=== PATIENT | female | born 2005 | race Caucasian/White ===

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

== ENCOUNTER 2024-04-28 00:12 | Inpatient (IN) | payer MEDICAID ==
[2024-04-28] MEDS ORDERED: Carboprost Tromethamine 250 MCG/1 ML Amp IM PRN (01:06)
[2024-04-28] MEDS ORDERED: Ondansetron 4 MG/2 ML SDV IVPUSH PRN (01:06)
[2024-04-28] MEDS ORDERED: Acetaminophen 325 MG Tab PO PRN (01:06)
[2024-04-28] MEDS ORDERED: Methylergonovine 0.2 MG/1 ML Amp IM PRN (01:06)
[2024-04-28] MEDS ORDERED: Misoprostol 400 MCG (4 X 100 MCG TAB) RECTAL PRN (01:06)
[2024-04-28] MEDS ORDERED: Sodium Chloride 0.9% 10 ML Syringe FLUSH PRN (01:06)
[2024-04-28] MEDS ORDERED: hydrOXYzine HCl 25 MG Tab PO PRN (01:10)
[2024-04-28 01:30] LABS: HEMATOCRIT 38.1 % (37.0-47.0); HEMOGLOBIN 12.3 g/dL (12.0-16.0); MEAN CORPUSCULAR HEMOGLOBIN 25.3 pg (27.0-34.0); MEAN CORPUSCULAR HGB CONC 32.3 g/dL (33.0-35.0); MEAN CORPUSCULAR VOLUME 78.2 fL (80-100); RED BLOOD CELL COUNT 4.87 10^6/uL (4.2-5.4); WHITE BLOOD CELL COUNT,WBC 13.3 10^3/uL (5.0-10.0)
[2024-04-28] MEDS: Lactated Ringers 1,000 ML IV SCH (01:45)
[2024-04-28] MEDS: Penicillin G Potassium 5 MILLUNITS in Sodium Chloride 0.9% 100 ML IV ONE (01:47)
[2024-04-28] MEDS: fentaNYL 100 MCG/2 ML SDV IVPUSH PRN (03:47)
[2024-04-28] MEDS ORDERED: Bupivacaine 0.25% 10 ML SDV ONE ×3 (05:23→19:06)
[2024-04-28] MEDS ORDERED: fentaNYL 100 MCG/2 ML SDV ONE ×3 (05:23→19:06)
[2024-04-28] MEDS: Penicillin G Potassium 3 MILLUNITS in Sodium Chloride 0.9% 100 ML IV SCH (05:40)
[2024-04-28] MEDS ORDERED: Phenylephrine HCl In 0.9% NaCl 1 MG/10 ML Syringe IVPUSH PRN (05:48)
[2024-04-28] MEDS ORDERED: ePHEDrine 50 MG/ML SDV IVPUSH PRN (05:48)
[2024-04-28] MEDS ORDERED: Lidocaine 1% 4 ML ONE (05:55)
[2024-04-28] MEDS: Oxytocin/Normal Saline 30 UNIT/500 ML BAG IV SCH (05:56)
[2024-04-28] MEDS ORDERED: Ropivacaine 200 MG in Premix Bag 1 BAG EPIDUR SCH (06:00)
[2024-04-28 09:34] LABS: HEMATOCRIT 35.6 % (37.0-47.0); HEMOGLOBIN 11.4 g/dL (12.0-16.0); MEAN CORPUSCULAR HEMOGLOBIN 25.3 pg (27.0-34.0); MEAN CORPUSCULAR VOLUME 79.1 fL (80-100); RED BLOOD CELL COUNT 4.5 10^6/uL (4.2-5.4); WHITE BLOOD CELL COUNT,WBC 14.2 10^3/uL (5.0-10.0)
[2024-04-28 09:37] LABS: APPEARANCE,URINE CLEAR (CLEAR); BILIRUBIN,URINE NEGATIVE (NEGATIVE); COLOR,URINE DARK YELLOW (YELLOW); GLUCOSE,URINE NEGATIVE (NEGATIVE); KETONES,URINE NEGATIVE (NEGATIVE); LEUKOCYTE ESTERASE,URINE TRACE (NEGATIVE); NITRITE,URINE NEGATIVE (NEGATIVE); OCCULT BLOOD,URINE TRACE-INTACT (NEGATIVE); PROTEIN,URINE 30 (NEGATIVE); UROBILINOGEN,URINE 0.2 mg/dL (0.2-1.0)
[2024-04-28 09:55] LABS: CREATININE 0.67 mg/dL (0.55-1.02); EST CRCL DRUG DOSING (CG) 126.43 mL/min; URIC ACID 3.6 mg/dL (2.6-6.0)
[2024-04-28 10:23] LABS: CREATININE,URINE RAND 201.86 mg/dL (No establ ref range); PROTEIN CREATININE RATIO,URINE 301.2 mg/g (<150.0); PROTEIN,URINE RANDOM 60.8 mg/dL (0.0-11.9)
[2024-04-28] MEDS: Tranexamic Acid 1,000 MG in Sodium Chloride 0.9% 100 ML IV PRN (20:42)
[2024-04-28] MEDS ORDERED: Oxytocin 10 Units/1 ML SDV IM PRN (20:51)
[2024-04-28] MEDS ORDERED: Simethicone 80 MG Tab.Chew PO PRN (20:51)
[2024-04-28] MEDS: Ibuprofen 800 MG Tab PO SCH (21:25)
[2024-04-28] MEDS: Benzocaine/Menthol 20%-0.5% Spray 78 GM Cannister TOP PRN (21:25)
[2024-04-28] MEDS: Witch Hazel Medicated Pads 100/Jar TOP PRN (21:25)
[2024-04-28] MEDS: Lidocaine 1% 30 ML SDV INJECT ONE (23:46)
[2024-04-28] MEDS: Lactated Ringers 1,000 ML IV ONE (23:47)
[2024-04-29] MEDS ORDERED: fentaNYL 100 MCG/2 ML SDV ONE (06:20)
[2024-04-29] MEDS ORDERED: Bupivacaine 0.25% 10 ML SDV ONE (06:20)
[2024-04-29] MEDS: Prenatal Multivitamin with Calcium/Folic Acid/Iron Tab PO SCH (08:00)
[2024-04-29] MEDS: Docusate Sodium 100 MG Cap PO PRN (08:00)
[2024-04-29] MEDS: Ibuprofen 800 MG Tab PO SCH (16:50)
[2024-04-29] MEDS: hydrOXYzine HCl 25 MG Tab PO SCH (23:44)
[2024-04-30] MEDS: Acetaminophen 325 MG Tab PO PRN (04:16)
== END 2024-04-30 11:45 | disposition home or self-care (01) | DRG 807 ==
LOC: DL.OBCHECK 00:12 → DL.OB 01:33 → OBSVTOIN 20:22
PROVIDERS: ADMIT Family Medicine; ATTEND Family Medicine
PROC: 10D07Z6 Extraction of Products of Conception, Vacuum, Via Natural or Artificial Opening (ICD-10-PCS; principal; 2024-04-28)
PROC: 0KQM0ZZ Repair Perineum Muscle, Open Approach (ICD-10-PCS; 2024-04-28)
PROC: 3E0R3BZ Introduction of Anesthetic Agent into Spinal Canal, Percutaneous Approach (ICD-10-PCS; 2024-04-28)
PROC: 00HU33Z Insertion of Infusion Device into Spinal Canal, Percutaneous Approach (ICD-10-PCS; 2024-04-28)
DX: O42.02 Full-term premature rupture of membranes, onset of labor within 24 hours of rupture (principal); Z3A.39 39 weeks gestation of pregnancy; Z37.0 Single live birth; O69.81X0 Labor and delivery complicated by cord around neck, without compression, not applicable or unspecified; O70.1 Second degree perineal laceration during delivery
CPT/HCPCS: 01967; 36415; 51701; 51702; 59409; 81003; 82565; 82570; 83615; 84112; 84156; 84450; 84460; 84520; 84550; 85027; A9270-GY; C1729; J2540; J2590; J3010; J3490; J7120

== ENCOUNTER 2025-01-24 14:17 | Emergency (ER) | payer MEDICAID | END 2025-01-24 14:35 | LOC: DL.ED 14:17 | DX: Z53.21 Procedure and treatment not carried out due to patient leaving prior to being seen by health care provider (principal) ==

== ENCOUNTER 2025-07-15 10:13 | Emergency (ER) | payer MEDICAID | END 2025-07-15 11:25 | disposition home or self-care (01) | LOC: DL.ED 10:13 | DX: S93.401A Sprain of unspecified ligament of right ankle, initial encounter (principal); E66.9 Obesity, unspecified; Z68.35 Body mass index [BMI] 35.0-35.9, adult; W01.0XXA Fall on same level from slipping, tripping and stumbling without subsequent striking against object, initial encounter | CPT/HCPCS: 73610; 99283; A9270 ==